=== PATIENT | male | born 1970 | race Caucasian/White ===

== ENCOUNTER 2018-07-30 15:17 | Emergency (ER) | payer MEDICAID ==
[~2018-07-30] VITALS: Ht 177.8 cm; Wt 77.0 kg
[2018-07-30] MEDS ORDERED: FAMOTIDINE 20MG/2ML VIAL IV STA (23:19)
[2018-07-30] MEDS ORDERED: SODIUM CHLORIDE 0.9% 1,000 ML IV ONE (23:19)
[2018-07-30] MEDS ORDERED: ONDANSETRON HCL 4MG/2ML INJ IV STA (23:19)
[2018-07-30] MEDS ORDERED: FENTANYL CITRATE/PF 50MCG/ML 2ML VIAL IV ONE (23:30)
[2018-07-31] LABS: BASOPHILS % 0.5 % (0.0-2.0); EOSINOPHILS % 0.1 % (0.0-5.0); HEMATOCRIT. 42.1 % (42.0-52.0); HEMOGLOBIN. 13.9 g/dL (14.0-18.0); LYMPHOCYTES % 29.5 % (20.0-50.0); MEAN CORPUSCULAR VOLUME 90.9 fL (80.0-94.0); MEAN PLATELET VOLUME 7.3 fl (7.4-10.4); MONOCYTES % 5.6 % (2.0-8.0); NEUTROPHILS % 64.3 % (40.0-76.0); PLATELET 261 x1000/uL (130-400); RED BLOOD CELL COUNT 4.63 mill/uL (4.7-6.1); RED CELL DISTRIBUTION WIDTH 13.6 % (11.6-14.6)
[2018-07-31 00:03] LABS: CLARITY URINE CLEAR (CLEAR); COLOR URINE YELLOW (YELLOW); KETONES URINE 2+ (NEGATIVE); LEUKOCYTE ESTERASE URINE NEGATIVE (NEGATIVE); NITRITE URINE NEGATIVE (NEGATIVE); OCCULT BLOOD URINE NEGATIVE (NEGATIVE); PH URINE 5.5 (4.5-8.0); PROTEIN URINE 1+ (NEGATIVE); SPECIFIC GRAVITY URINE 1.031 (1.005-1.030)
[2018-07-31 00:04] LABS: CHLORIDE 103 mEq/L (98-107)
[2018-07-31 00:08] LABS: INR 1.1; PROTHROMBIN TIME 10.7 sec (9.1-11.1)
[2018-07-31 02:15] VITALS: BP 131/77
== END 2018-07-31 02:15 | disposition home or self-care (01) ==
LOC: ER 15:17
DX: R10.9 Unspecified abdominal pain (principal); R11.10 Vomiting, unspecified; E78.00 Pure hypercholesterolemia, unspecified; R03.0 Elevated blood-pressure reading, without diagnosis of hypertension; Z87.891 Personal history of nicotine dependence; Z98.890 Other specified postprocedural states
CPT/HCPCS: 36415; 76705; 80053; 81003; 83690; 85025; 85610; 85730; 96361; 96374; 96375; 99284; J2405; J3010; J3490; J7030